=== PATIENT | female | born 1965 | race Hispanic/Latino ===

== ENCOUNTER 2018-04-17 15:34 | Outpatient (CLI) | payer BC | END 2018-04-17 15:35 | disposition home or self-care (01) | LOC: BICMAMMO 15:34 | PROVIDERS: ATTEND Family Medicine | DX: Z12.31 Encounter for screening mammogram for malignant neoplasm of breast (principal); R92.1 Mammographic calcification found on diagnostic imaging of breast | CPT/HCPCS: 77063; 77067 ==

== ENCOUNTER 2018-08-01 15:17 | Outpatient (CLI) | payer BC ==
--- NOTE | 2018-08-01 16:36 | ULT ---
PELVIC SONOGRAM: TRANSABDOMINAL AND TRANSVAGINAL IMAGING 08/01/18 HISTORY: Postmenopausal bleeding. FINDINGS: The urinary bladder is incompletely distended. Uterus is retroverted and measures up to 7.3 cm. Multi ple heterogeneous hypoechoic masses are present, measuring up to 2.6 cm at the fundus. Endometrium is 0.4 cm. No free fluid. Right ovary is 2.0 cm and left is 1.7 cm. Each has a normal appearance with good color and spectral d oppler flow. IMPRESSION: Mild to moderate fibroid involvement of the retroverted uterus. POS: [facility]
== END 2018-08-01 15:18 | disposition home or self-care (01) ==
LOC: SCSULT 15:17
PROVIDERS: ATTEND Family Medicine
DX: Z09 Encounter for follow-up examination after completed treatment for conditions other than malignant neoplasm (principal); D25.9 Leiomyoma of uterus, unspecified; Z87.42 Personal history of other diseases of the female genital tract
CPT/HCPCS: 76856

== ENCOUNTER 2018-12-13 07:37 | Outpatient (CLI) | payer BC ==
--- NOTE | 2018-12-13 09:20 | ULT ---
TRANSABDOMINAL AND TRANSVAGINAL PELVIC ULTRASOUND: HISTORY: Postmenopausal bleeding. FINDINGS: The uterus measures 8.2 x 4.5 x 5.4 cm with multiple masses consistent with fibroids, the largest emily suring 3.1 x 3 x 2.9 cm in the right fundal region, 1.5 x 1.5 x 1.7 cm in the left fundal region, and 1.8 x 1.5 x 1.7 cm in the left myometrium. The endometrium measures 1.1 cm in thickness with a small amount of fluid in the endometrial cavity. The ovaries are not visualized on either side. No free fluid is seen in the cul-de-sac. There is a mass-like tubular structure in the right adnexa measuring 5.5 x 1.7 x 1.8 cm which demonstrates flow. IMPRESSION: 1. Uterine fibroids. 2. Endometrial fluid with endometrial thickness of 11 mm. 3. Tubular mass-like structure in the right adnexa measuring 5.5 x 1.7 x 1.8 cm. Neoplastic etiolog y cannot be excluded. Gynecologic consultation is recommended. POS: [facility]
== END 2018-12-13 07:38 | disposition home or self-care (01) ==
LOC: SCSULT 07:37
PROVIDERS: ATTEND Family Medicine
DX: N95.0 Postmenopausal bleeding (principal); D25.9 Leiomyoma of uterus, unspecified
CPT/HCPCS: 76856

== ENCOUNTER 2019-05-03 14:52 | Outpatient (CLI) | payer BC ==
--- NOTE | 2019-05-03 18:03 | MRI ---
MRI PELVIS WITH AND WITHOUT CONTRAST: HISTORY: Postmenopausal bleeding in a 53-year-old female. COMPARISON: Pelvic ultrasound from 12/13/2018. TECHNIQUE: Multiplanar, multisequence MR images were obtained of the pelvis with and without IV contrast. FINDINGS: The uterus is retroverted. There are multiple low T2 signal foci, which demonstrate enhancement, emily suring up to 3.1 cm in size, that represent uterine fibroids. The junctional zone of the uterus is t hickened, measuring 1.4 cm in size, with small T2 signal foci within the thickened junctional zone. This likely represents uterine adenomyosis. There are tiny T2 signal foci in the cervix, which may r epresent small nabothian cysts. No free fluid is seen in the pelvis. There is prominence of the left fallopian tube, measuring 9 mm in width. The left ovary is unable to be visualized. The right ovary is unremarkable. No pelvic adenopathy is seen. No marrow signal abnormality is present. IMPRESSION: 1. Fibroid uterus. 2. Uterine adenomyosis. 3. Left mild hydrosalpinx. POS: [facility]
== END 2019-05-03 14:53 | disposition home or self-care (01) ==
LOC: SCSMRI 14:52
PROVIDERS: ATTEND Obstetrics & Gynecology
DX: R19.00 Intra-abdominal and pelvic swelling, mass and lump, unspecified site (principal); D25.9 Leiomyoma of uterus, unspecified; N80.0 Endometriosis of uterus; N70.11 Chronic salpingitis
CPT/HCPCS: 72197

== ENCOUNTER 2020-06-24 08:00 | Outpatient (CLI) | payer BC ==
--- NOTE | 2020-06-24 08:58 | MMO ---
Bilateral MAMMO Bilat Screen [facility]. CLINICAL HISTORY: Patient is 54 years old and is seen for screening. The patient has no family history of breast cancer. The patient has no personal history of cancer. VIEWS: The views performed were: bilateral craniocaudal with tomosynthesis and bilateral mediolateral oblique with tomosynthesis. FILMS COMPARED: The present examination has been compared to prior imaging studies performed at [facility] on 11/26/2014, 01/12/2016, 01/12/2017 and 04/17/2018. This study has been interpreted with the assistance of computer-aided detection. MAMMOGRAM FINDINGS: The breasts are almost entirely fat. There are no suspicious masses, suspicious calcifications, or new areas of architectural distortion. IMPRESSION: THERE IS NO MAMMOGRAPHIC EVIDENCE OF MALIGNANCY. A ROUTINE FOLLOW-UP MAMMOGRAM IN 1 YEAR IS RECOMMENDED. THE RESULTS OF THIS EXAM WERE SENT TO THE PATIENT. ACR BI-RADS Category 1 - Negative MAMMOGRAPHY NOTE: 1. A negative mammogram report should not delay a biopsy if a dominant of clinically suspicious mass is present. 2. Approximately 10% to 15% of breast cancers are not detected by mammography. 3. Adenosis and dense breasts may obscure an underlying neoplasm. Reported by: UMM KENT MD Electonically Signed: [id number]
== END 2020-06-24 08:01 | disposition home or self-care (01) ==
LOC: BICMAMMO 08:00
PROVIDERS: ATTEND Family Medicine
DX: Z12.31 Encounter for screening mammogram for malignant neoplasm of breast (principal)
CPT/HCPCS: 77063; 77067

== ENCOUNTER 2021-07-01 15:33 | Outpatient (CLI) | payer BC | END 2021-07-01 15:34 | disposition home or self-care (01) | LOC: BICMAMMO 15:33 | PROVIDERS: ATTEND Family Medicine | DX: Z12.31 Encounter for screening mammogram for malignant neoplasm of breast (principal) | CPT/HCPCS: 77063; 77067 ==

== ENCOUNTER 2023-05-30 10:10 | Outpatient (CLI) | payer BC | END 2023-05-30 10:11 | disposition home or self-care (01) | LOC: BICMRI 10:10 | PROVIDERS: ATTEND Orthopaedic Surgery | DX: S43.004A Unspecified dislocation of right shoulder joint, initial encounter (principal); S42.251A Displaced fracture of greater tuberosity of right humerus, initial encounter for closed fracture; M75.111 Incomplete rotator cuff tear or rupture of right shoulder, not specified as traumatic; M25.411 Effusion, right shoulder; M19.011 Primary osteoarthritis, right shoulder ==

== ENCOUNTER 2024-06-20 07:24 | Day surgery (SDC) | payer BC ==
[2024-06-13 16:18] VITALS: BMI 33.3
[2024-06-20] MEDS ORDERED: fentaNYL 50 mcg/mL 1 mL Vial ONE ×3 (07:52→12:26)
[2024-06-20] MEDS ORDERED: Midazolam HCl 2 mg/2 ml Vial ONE (07:52)
[2024-06-20] MEDS ORDERED: Ropivacaine 0.2% HCl/PF 20 ML ONE (07:52)
[2024-06-20] MEDS ORDERED: Ropivacaine 0.5% HCl/PF (150 MG/30 ML VIAL) ONE (07:52)
[2024-06-20] MEDS ORDERED: fentaNYL 50 mcg/mL 1 mL Vial SLOW IVP PRN (08:50)
[2024-06-20] MEDS ORDERED: EPINEPHrine 1 MG/ML VIAL ONE (08:59)
[2024-06-20] MEDS ORDERED: Ondansetron PF 4 MG/2 ML Vial IVP PRN (09:00)
[2024-06-20] MEDS ORDERED: Zolpidem Tartrate 5 MG TAB PO PRN (09:00)
[2024-06-20] MEDS ORDERED: Promethazine HCl 25 MG/ML VIAL IM PRN (09:00)
[2024-06-20] MEDS ORDERED: Sodium Chloride 0.9% 100 ML ONE (09:00)
[2024-06-20] MEDS ORDERED: Lidocaine 1% (PF) 30 ML VIAL ONE (09:00)
[2024-06-20] MEDS ORDERED: HYDROcodone/Acetaminophen 5/325 mg Tablet PO PRN ×2 (09:00)
[2024-06-20] MEDS ORDERED: CEFAZOLIN 2 GM VIAL ONE (09:00)
[2024-06-20] MEDS ORDERED: traMADol HCl 50 MG TAB PO PRN ×2 (09:00)
[2024-06-20] MEDS ORDERED: Ropivacaine 0.2% 550 ML 550 ML NERVE BLCK SCH (09:00)
[2024-06-20] MEDS ORDERED: PROPOFOL 40 ML ONE (09:18)
[2024-06-20] MEDS ORDERED: ePHEDrine Sulfate 50 MG/10 ML VIAL ONE (09:35)
[2024-06-20] MEDS ORDERED: Dexamethasone 20 MG/5 ML VIAL ONE (09:35)
[2024-06-20] MEDS ORDERED: Rocuronium Bromide 10 MG/ML (10ML VIAL) ONE (09:35)
[2024-06-20] MEDS ORDERED: Ketorolac Tromethamine 30 MG (1 mL) VIAL ONE (12:27)
== END 2024-06-20 14:52 | disposition home or self-care (01) ==
LOC: SDC 07:24
PROVIDERS: ATTEND Orthopaedic Surgery
PROC: 0LS34ZZ Reposition Right Upper Arm Tendon, Percutaneous Endoscopic Approach (ICD-10-PCS; principal; 2024-06-20)
PROC: 3E0T3BZ Introduction of Anesthetic Agent into Peripheral Nerves and Plexi, Percutaneous Approach (ICD-10-PCS; principal; 2024-06-20)
DX: M75.121 Complete rotator cuff tear or rupture of right shoulder, not specified as traumatic (principal); E78.5 Hyperlipidemia, unspecified; E03.9 Hypothyroidism, unspecified; R32 Unspecified urinary incontinence; Z90.89 Acquired absence of other organs; Z98.51 Tubal ligation status; Z98.890 Other specified postprocedural states; Z79.890 Hormone replacement therapy
CPT/HCPCS: A4306; C1713; J0171; J1100; J1885; J2001; J2250; J2704; J2795; J3010

== ENCOUNTER 2025-08-15 08:02 | Outpatient (CLI) | payer BC | END 2025-08-15 08:03 | disposition home or self-care (01) | LOC: BICMAMMO 08:02 | PROVIDERS: ATTEND Family Medicine | DX: Z12.31 Encounter for screening mammogram for malignant neoplasm of breast (principal) | CPT/HCPCS: 77063; 77067 ==